=== PATIENT | female | born 1940 | race Caucasian/White ===

== ENCOUNTER 2016-08-21 06:54 | Day surgery (SDC) | payer OTHER ==
[~2016-08-21] VITALS: Ht 157.5 cm; Wt 88.9 kg
[~2016-08-21 06:54] MED LIST: GEMFIBROZIL600 MG PO; HYZAAR 100-21 TABLET PO; IRON325 M1 PO; METFORMIN HCL500 MG PO; NORVASC5 MG PO; ZOCOR80 MG PO
[2016-08-21 07:54] VITALS: BP 164/79
[2016-08-21 08:18] LABS: POINT-OF-CARE METER ID UU14174212
[2016-08-21] MEDS ORDERED: NORCO 5/3251 TABLET PO (12:05)
[2016-08-21 12:47] LABS: POINT-OF-CARE METER ID UU13113675
[2016-08-21 13:10] VITALS: BP 147/70
[2016-08-21 14:10] VITALS: BP 161/70
== END 2016-08-21 14:27 | disposition home or self-care (01) ==
LOC: SDC 06:54
PROVIDERS: Surgery
PROC: 0HBU0ZZ Excision of Left Breast, Open Approach (ICD-10-PCS; principal; 2016-08-21)
DX: D05.12 Intraductal carcinoma in situ of left breast (principal); E11.9 Type 2 diabetes mellitus without complications; E78.5 Hyperlipidemia, unspecified; I10 Essential (primary) hypertension; D50.9 Iron deficiency anemia, unspecified; Z86.010 Personal history of colon polyps; Z82.49 Family history of ischemic heart disease and other diseases of the circulatory system; Z79.84 Long term (current) use of oral hypoglycemic drugs
CPT/HCPCS: 82948; 88305; 88307; J0690; J1885; J2250; J2405; J3010; J7050